=== PATIENT | female | born 1985 | race Caucasian/White ===

== ENCOUNTER → 2018-09-02 07:10 | Outpatient (CLI) | payer OTHER, MEDICAID, SELFPAY ==
--- NOTE | 2018-09-02 07:18 | DI.CT.S_ITS ---
PROCEDURE: CT HEAD/BRAIN WO/W CON INDICATIONS: Headache TECHNIQUE: Precontrast 4.5 mm thick sections acquired from the foramen magnum to the vertex. After the administration of intravenous contrast, 5 mm thick sections acquired through the brain again, followed by 1 mm thick coronal and sagittal reformats through the pituitary fossa. COMPARISON: None. FINDINGS: Image quality: Excellent. Sella: Normal. CSF spaces: Ventricles are symmetric in size and shape. Basal cisterns are patent. No extra-axial fluid collections. Brain: No midline shift. No intracranial bleeds or masses. Schuler-white matter interface appears intact throughout. Skull and face: Calvarium and facial bones appears intact, without suspicious lesions. Orbits appear normal. Sinuses: Sinuses and mastoids appear clear except for mild maxillary sinus mucosal thickening and a small mucous retention cyst at the lateral aspect of the right maxillary sinus.. IMPRESSION: No infection or neoplasm suspected. Mild sinusitis. No vascular abnormality found on the contrast-enhanced portion of the study. Dictated by: Candelario Johns M.D. on 09/02/2018 at 8:29 Approved by: Candelario Johns M.D. on 09/02/2018 at 8:31
== END ==
PROVIDERS: PCP Family Medicine; Visit Provider Physician Assistant
DX: R51 Headache (principal); J32.0 Chronic maxillary sinusitis
CPT/HCPCS: 70470; Q9967

== ENCOUNTER → 2018-10-01 18:51 | Outpatient (CLI) | payer OTHER, SELFPAY ==
[2018-10-01 19:03] LABS: Add Manual Diff / Slide Review NO; Basophils Absolute Auto 100 /uL (0-100); Basophils Percent Auto 1.4 % (0-2); Eosinophils Absolute Auto 700 /uL (0-450); Eosinophils Percent Auto 9.2 % (2-4); Hemoglobin 14.7 g/dL (12.0-16.0); Lymphocytes Absolute Auto 2000 /uL (1100-4500); Lymphocytes Percent Auto 27.8 % (25-40); Mean Corpuscular HGB Conc 33.4 % (30-36); Mean Corpuscular Hemoglobin 28.8 PG (26-34); Mean Corpuscular Volume 86.2 fL (80-100); Monocytes Absolute Auto 800 /uL (0-900); Monocytes Percent Auto 10.7 % (3-14); Neutrophils Absolute Auto 3700 /uL (1500-7000); Neutrophils Percent Auto 50.9 % (50-75); Platelet Count 168 X10^3/uL (150-400); Red Blood Cell Count 5.11 X10^6/uL (4.0-5.2); Red Cell Distribution Width 14.5 % (11.6-14.8); White Blood Cell Count 7.3 X10^3/uL (4.5-11.0)
[2018-10-01 19:42] LABS: D Dimer < 200 ng/mL (<230)
== END ==
PROVIDERS: PCP Family Medicine; Visit Provider Physician Assistant
DX: R06.02 Shortness of breath (principal)
CPT/HCPCS: 85025; 85379

== ENCOUNTER → 2018-10-01 18:59 | Outpatient (CLI) | payer BC, SELFPAY ==
--- NOTE | 2018-10-01 19:04 | DI.RAD.S_ITS ---
PROCEDURE: XR CHEST 2V INDICATIONS: shortness of breath TECHNIQUE: 2 views of the chest were acquired. COMPARISON: None. FINDINGS: Surgical changes and devices: None. Lungs and pleura: Lungs are clear. No pleural effusions or pneumothorax. Mediastinum: Mediastinal contours are normal. Heart size is normal. Bones and chest wall: No suspicious bony abnormalities. Soft tissues appear unremarkable. IMPRESSION: No acute cardiopulmonary pathology. Dictated by: Ajay Murcia M.D. on 10/01/2018 at 19:34 Approved by: Ajay Murcia M.D. on 10/01/2018 at 19:34
== END ==
PROVIDERS: PCP Family Medicine; Visit Provider Physician Assistant
DX: R06.02 Shortness of breath (principal)
CPT/HCPCS: 71046

== ENCOUNTER → 2020-05-25 10:21 | Outpatient (CLI) | payer BC, OTHER, MEDICAID, SELFPAY ==
[2020-05-26 14:29] LABS: COVID19 Sendout Not Detected (Not Detect)
== END ==
PROVIDERS: PCP Family Medicine; Referring Provider Physician Assistant; Visit Provider Physician Assistant
DX: Z03.818 Encounter for observation for suspected exposure to other biological agents ruled out (principal)
CPT/HCPCS: 87635

== ENCOUNTER 2020-09-13 02:22 | Emergency (ER) | payer OTHER, MEDICAID, SELFPAY ==
[2020-09-13 02:25] VITALS: BP 133/73; PULSE 83; RESP 18; TEMP 36.8; O2SAT 97; BMI 21.6
--- NOTE | 2020-09-13 02:33 | ED.GENADULT ---
HPI - General Adult General Chief complaint: Extremity Problem,Nontraumatic Stated complaint: taking prednisone, knee pain feels like hit w/bat Time Seen by Provider: 09/13/20 02:33 History of Present Illness HPI narrative: 35-year-old woman with a history of asthma and nasal polyps currently on a extended prednisone taper due to recent asthma is experiencing severe bilateral knee pain. She has no fevers, chills, rashes. She does not describe any recent trauma to the knees. Over the course of the evening they both gotten increasingly painful to the point she is having trouble walking and describes the pain as being ?hit with a bat or in a car accident but deep inside?. She does not describe arthralgias in any other joints. No recent weight loss or abdominal pain. She notes an episode approximately a week ago where she had 15 minutes of dramatic weakness almost unable to get off the bed associated with tightness across the upper portion of her chest that all resolved spontaneously. She notes that with the recent prednisone taper her asthma is improving and her chronic headaches have also not been bothering her recently. Last week she describes significant constipation followed by a couple days of diarrhea and her bowels have returned to normal this week. She describes no dysuria, vaginal discharge or pelvic discomfort. She states she has never had similar pain. She does not complain of particularly dry skin, difficulty swallowing dry mouth or dry eyes. Related Data Home Medications Medication Instructions Recorded Confirmed multivitamin [Multiple Vitamins] #0 10/09/17 09/15/18 albuterol sulfate 90 mcg/actuation 2 inhalation INHALATION Q4-6H PRN 10/01/18 10/01/18 breath activated powder inhaler fluticasone propionate 50 2 spray NASAL DAILY 10/01/18 10/01/18 mcg/actuation nasal spray,suspension Previous Rx's Medication Instructions Recorded prednisone 20 mg tablet 40 mg PO DAILY #13 tab 09/15/18 oxycodone-acetaminophen 1 tab PO Q6H 7 Days #14 tab 09/13/20 Allergies Allergy/AdvReac Type Severity Reaction Status Date / Time aspirin [ASPIRIN] Allergy Severe Difficulty Verified 09/13/20 02:39 Breathing loratadine [LORATADINE] Allergy Intermediate Hives Verified 09/13/20 02:39 Review of Systems Review of Systems ROS Unobtainable: All systems reviewed & are unremarkable except as noted in HPI and below Patient History Medical History (Updated 09/13/20 @ 03:40 by Kelly Smith MD) Asthma Social History Smoking Status: Never smoker Smoking Status: Never smoker Exam Narrative Exam Narrative: General: Healthy appearing, in mild distress. Able to give a complete and coherent history. Well-nourished well-developed HEENT: Moist mucous membranes, normal sclera with reactive pupils, Neck: No JVD, supple, no tenderness throughout range of motion Respiratory: Lungs are clear to auscultation, no wheezing no rales no rhonchi. Full and symmetrical air movement Chest: Mild tenderness to costochondral joints along sternum bilaterally Cardiac: Regular rate and rhythm no murmurs no bruits Abdomen: Soft, nontender, good bowel tones, no flank pain Skin: Warm and dry, no rashes Neurologic: Grossly neurologically intact with no obvious asymmetries or abnormalities Extremities: No trauma, well perfused. Full nontender range of motion at wrists elbows shoulders hips and ankles. Both knees with significant pain. She can extend both to 180? and flex to approximately 90. There is no obvious effusions no ligamentous tenderness or joint instability in either knee. Neither are warm to the touch or erythematous. She has no obvious synovitis in her hands. Psych: Cooperative, appropriate insight and affect Initial Vital Signs Initial Vital Signs: Vital Signs Temperature 98.3 F 09/13/20 02:25 Pulse Rate 83 09/13/20 02:25 Respiratory Rate 18 09/13/20 02:25 Blood Pressure 133/73 09/13/20 02:25 Pulse Oximetry 97 09/13/20 02:25 Course Orders Ordered: ED Orders 09/13/20 02:51 C-Reactive Protein Quant Stat Complete Blood Count AUTO DIFF Stat Comprehensive Metabolic Panel Stat Erythrocyte Sedimentation Rate Stat Rheumatoid Factor Stat Discontinued Medications Ketorolac Tromethamine (Ketorolac 60 Mg/2 Ml Vial) 15 mg IV NOW ONE Stop: 09/13/20 02:48 Last Admin: 09/13/20 02:54 Dose: 15 mg Documented by: Oxycodone/Acetaminophen (Oxycodone/Apap 5/325 Prepack) 1 bottle MISC SEEINSTR ONE Stop: 09/13/20 03:38 Vital Signs Vital signs: Vital Signs - 8 hr 09/13/20 02:25 Temperature 98.3 F Pulse Rate 83 Respiratory Rate 18 Blood Pressure 133/73 Pulse Oximetry 97 Medical Decision Making Medical Records Medical records reviewed: Yes I reviewed the patient's medical records. Lab Data Lab results reviewed: Yes I reviewed the patient's lab results. Lab results narrative: Leukocytosis is secondary to concurrent prednisone use Result diagrams: 09/13/20 02:51 09/13/20 02:51 Labs: Lab Results 09/13/20 09/13/20 Range/Units 02:51 02:51 WBC 14.5 H (4.5-11.0) X10^3/uL RBC 4.86 (4.0-5.2) X10^6/uL Hgb 13.5 (12.0-16.0) g/dL Hct 41.7 (36-46) % MCV 85.8 (80-100) fL MCH 27.7 (26-34) PG MCHC 32.3 (30-36) % RDW 14.8 (11.6-14.8) % Plt Count 210 (150-400) X10^3/uL Neut % (Auto) 72.2 (50-75) % Lymph % (Auto) 16.5 L (25-40) % [place] % (Auto) 9.8 (3-14) % Eos % (Auto) 1.3 L (2-4) % Baso % (Auto) 0.2 (0-2) % Neut # (Auto) 44949 H (7579-1441) /uL Lymph # (Auto) 2400 (8271-0131) /uL [place] # (Auto) 1400 H (0-900) /uL Eos # (Auto) 200 (0-450) /uL Baso # (Auto) 0 (0-100) /uL ESR 1 (0-20) MM/HR Sodium 135 L (137-145) mmol/L Potassium 3.8 (3.4-5.1) mmol/L Chloride 106 (98-107) mmol/L Carbon Dioxide 25 (22-32) mmol/L BUN 22 H (7-17) mg/dL Creatinine 0.72 (0.52-1.04) mg/dL Estimated GFR > 60.0 (>60) mL/min BUN/Creatinine Ratio 30.6 H (6-22) Glucose 93 (70-100) mg/dL Calcium 8.5 (8.4-10.2) mg/dL Total Bilirubin 0.1 L (0.2-1.3) mg/dL AST 18 (14-36) IU/L ALT 29 (<35) IU/L Alkaline Phosphatase 52 (38-126) U/L C-Reactive Protein < 0.5 (<1.0) mg/dL Total Protein 6.3 (6.3-8.2) g/dL Albumin 3.7 (3.5-5.0) g/dL Globulin 2.6 (1.7-4.1) g/dL Albumin/Globulin Ratio 1.4 (1.0-2.8) Rheumatoid Factor < 8.6 (<12.0) IU/mL MDM Narrative Medical decision making narrative: 35-year-old woman presenting with bilateral knee pain of uncertain etiology with no inciting events. She does have a strong family history of arthritis but is not sure what types of arthritis. She is on a prednisone taper and currently down to 10 mg a day. This does not look like an infectious arthritis or septic joint. She does not describe recent infections to be presenting with a postinfectious arthritis. At 35 otherwise healthy and both knees involved gout or crystal induced arthritis would be less likely. Certainly an inflammatory arthritis or systemic rheumatic illness with arthropathy remain high in the differential. The coincidental steroid taper is an interesting detail. She may have been treating symptoms with the steroids and now on mask as she is getting to a lower dose. Blood work including BMP, CMP sed rate and rheumatoid factor are ordered. Try Toradol for pain control. She declines any narcotics at this point. In the absence of trauma and no obvious bony injury x-rays are not ordered today. Labs return unremarkable. Findings are reviewed with patient. At this point I think that it is safe to go home and see what happens over the next couple of days. With any signs of infection she certainly needs to return. I have suggested that she continue the prednisone taper as Originally ordered and schedule a follow-up appointment with her primary care physician for approximately 1 week after the end of the taper to see if she still having this inflammatory type arthropathy. She is safe for home discharge Discharge Plan Departure Patient Disposition: Home Clinical Impression: Arthropathy Instructions: DI for Knee Pain Activity Restrictions/Additional Instructions: Thank you for coming in [facility] I do not have a full explanation for the arthropathy that you are experiencing in both knees. The workup done tonight does show that there is no significant infection or inflammation currently found. I am going to suggest that you complete your prednisone taper as originally prescribed. You can use half to 1 Percocet to help with pain control. You do need to follow-up with your primary care physician about a week after the end of the prednisone. We will need to wait and see what your body tells us needs to happen next regarding the acute knee pain. If you develop any signs of infection such as fever, redness, swelling please return to the ER for further evaluation Prescriptions: New oxycodone-acetaminophen 5-325 mg tablet 1 tab PO Q6H 7 Days Qty: 14 RF: 0 No Action prednisone 20 mg tablet 40 mg PO DAILY Qty: 13 RF: 0 albuterol sulfate 90 mcg/actuation aerosol powdr breath activated 2 inhalation INHALATION Q4-6H PRNRF: 0 fluticasone propionate 50 mcg/actuation spray,suspension 2 spray NASAL DAILY RF: 0 multivitamin [Multiple Vitamins] 1 EACH tablet Qty: 0 RF: 0 Referrals: Dillan Saucedo MD [Primary Care Provider] -
[2020-09-13] MEDS: KETOROLAC 60 MG/2 ML VIAL 15 MG IV (02:54)
[2020-09-13 03:04] LABS: Add Manual Diff / Slide Review NO; Basophils Absolute Auto 0 /uL (0-100); Basophils Percent Auto 0.2 % (0-2); Eosinophils Absolute Auto 200 /uL (0-450); Eosinophils Percent Auto 1.3 % (2-4); Hematocrit 41.7 % (36-46); Hemoglobin 13.5 g/dL (12.0-16.0); Lymphocytes Absolute Auto 2400 /uL (1100-4500); Lymphocytes Percent Auto 16.5 % (25-40); Mean Corpuscular HGB Conc 32.3 % (30-36); Mean Corpuscular Hemoglobin 27.7 PG (26-34); Mean Corpuscular Volume 85.8 fL (80-100); Monocytes Absolute Auto 1400 /uL (0-900); Monocytes Percent Auto 9.8 % (3-14); Neutrophils Absolute Auto 10500 /uL (1500-7000); Neutrophils Percent Auto 72.2 % (50-75); Platelet Count 210 X10^3/uL (150-400); Red Blood Cell Count 4.86 X10^6/uL (4.0-5.2); Red Cell Distribution Width 14.8 % (11.6-14.8); White Blood Cell Count 14.5 X10^3/uL (4.5-11.0)
[2020-09-13 03:14] LABS: Alanine Aminotransferase 29 IU/L (<35); Albumin 3.7 g/dL (3.5-5.0); Albumin Globulin Ratio 1.4 (1.0-2.8); Alkaline Phosphatase 52 U/L (38-126); Aspartate Aminotransferase 18 IU/L (14-36); BUN Creatinine Ratio 30.6 (6-22); Bilirubin Total 0.1 mg/dL (0.2-1.3); Blood Urea Nitrogen 22 mg/dL (7-17); Calcium 8.5 mg/dL (8.4-10.2); Carbon Dioxide 25 mmol/L (22-32); Chloride 106 mmol/L (98-107); Estimated Glomerular Filt Rate > 60.0 mL/min (>60); Globulin 2.6 g/dL (1.7-4.1); Glucose 93 mg/dL (70-100); HEMOLYSIS 15 (0-50); Potassium 3.8 mmol/L (3.4-5.1); Sodium 135 mmol/L (137-145); Total Protein 6.3 g/dL (6.3-8.2)
[2020-09-13 03:17] LABS: C-Reactive Protein Quant < 0.5 mg/dL (<1.0); Rheumatoid Factor < 8.6 IU/mL (<12.0)
[2020-09-13 03:26] LABS: Erythrocyte Sedimentation Rate 1 MM/HR (0-20)
[2020-09-13] MEDS: OXYCODONE/APAP 5/325 PREPACK 1 BOTTLE MISC (03:47)
[2020-09-13 03:52] VITALS: BP 119/75; PULSE 70; RESP 18; O2SAT 97
== END 2020-09-13 03:53 | disposition home or self-care (01) ==
PROVIDERS: Emergency Provider Emergency Medicine; PCP Family Medicine
DX: M25.562 Pain in left knee (principal); M25.561 Pain in right knee; J45.909 Unspecified asthma, uncomplicated
CPT/HCPCS: 36415; 80053; 85025; 85651; 86140; 86430; 96374; 99283; 99284; J1885

== ENCOUNTER → 2021-08-23 14:43 | Outpatient (CLI) | payer OTHER, MEDICAID, SELFPAY ==
[2021-08-23 15:13] LABS: COVID19 -Nasal RAPID Negative (Negative)
== END ==
PROVIDERS: PCP Family Medicine; Referring Provider Nurse Practitioner Family; Visit Provider Nurse Practitioner Family
DX: Z20.822 Contact with and (suspected) exposure to COVID-19 (principal)
CPT/HCPCS: 87635

== ENCOUNTER → 2021-08-23 15:26 | Outpatient (CLI) | payer OTHER, MEDICAID, SELFPAY ==
--- NOTE | 2021-08-23 15:30 | DI.RAD.S_ITS ---
PROCEDURE: XR CHEST 2V INDICATIONS: shortness of breath TECHNIQUE: 2 views of the chest were acquired. COMPARISON: [facility], CR, XR CHEST 2V, 10/01/2018, 19:15. FINDINGS: Surgical changes and devices: None. Lungs and pleura: No consolidation, pleural effusions or pneumothorax. Mediastinum: Mediastinal contours are normal. Heart size is normal. Bones and chest wall: No suspicious bony abnormalities. Soft tissues appear unremarkable. IMPRESSION: No acute cardiopulmonary abnormality. Dictated by: Dawson Ye M.D. on 08/23/2021 at 15:59 Approved by: Dawson Ye M.D. on 08/23/2021 at 16:00
== END ==
PROVIDERS: PCP Family Medicine; Referring Provider Nurse Practitioner Family; Visit Provider Nurse Practitioner Family
DX: J45.909 Unspecified asthma, uncomplicated (principal); Z20.822 Contact with and (suspected) exposure to COVID-19
CPT/HCPCS: 71046; 87635

== ENCOUNTER 2021-09-19 06:48 | Emergency (ER) | payer OTHER, MEDICAID, SELFPAY ==
[2021-09-19] VITALS (7 sets, daily range): BP systolic 105–129; BP diastolic 66–78; PULSE 68–93; RESP 17–24; TEMP 36.2; O2SAT 97–100; BMI 21.6
--- NOTE | 2021-09-19 07:07 | DI.RAD.S_ITS ---
PROCEDURE: XR CHEST 1V INDICATIONS: Chest pain TECHNIQUE: One view of the chest was acquired. COMPARISON: None. FINDINGS: Surgical changes and devices: None. Lungs and pleura: Lungs are clear. No pleural effusions or pneumothorax. Mediastinum: Mediastinal contours appear normal. Heart size is normal. Bones and chest wall: No suspicious bony lesions. Overlying soft tissues appear unremarkable. IMPRESSION: No acute cardiopulmonary process demonstrated radiographically. Dictated by: Dillan Roman M.D. on 09/19/2021 at 8:09 Approved by: Dillan Roman M.D. on 09/19/2021 at 8:09
--- NOTE | 2021-09-19 07:14 | ED_ITS ---
HPI - Chest Pain General Chief Complaint: Chest Pain Stated Complaint: low back pain/chest pain feels like pressure Time Seen by Provider: 09/19/21 07:04 Source: patient Mode of arrival: Ambulatory Limitations: no limitations History of Present Illness HPI narrative: Patient is a 36-year-old female who is here for evaluation of right-sided chest discomfort and right back discomfort. She had a 1st episode of this yesterday afternoon. It resolved. Noticed some see eating or movement or palpation of breathing. During the middle of night last night she had a recurrence of the symptoms. She states that was worse than what it was during the day. It has since completely resolved. She thinks it lasted approximately 45 minutes. Again not associated with movement palpation or breathing. Has never had sympt oms like this prior to yesterday. No nausea vomiting. No shortness of breath. Did have diarrhea 2 days ago that is resolved. No lower extremity swelling. She is currently asymptomatic Related Data Home Medications Medication Instructions Recorded Confirmed multivitamin (Multiple Vitamins) #0 10/09/17 08/23/21 albuterol sulfate 90 mcg/actuation 2 inhalation INHALATION Q4-6H PRN 10/01/18 08/23/21 breath activated powder inhaler fluticasone propionate 50 2 spray NASAL DAILY 10/01/18 08/23/21 mcg/actuation nasal spray,suspension Previous Rx's Medication Instructions Recorded fluticasone 250 mcg-salmeterol 50 1 inh INHALATION BID #60 ea 08/23/21 mcg/dose blistr powdr for inhalation (Advair Diskus) Allergies Allergy/AdvReac Type Severity Reaction Status Date / Time aspirin [ASPIRIN] Allergy Severe Difficulty Verified 09/19/21 07:01 Breathing loratadine [LORATADINE] Allergy Intermediate Hives Verified 09/19/21 07:01 Review of Systems Constitutional Constitutional: Reports system reviewed and no additional complaints, except as documented Cardiovascular Cardiovascular: Reports system reviewed and no additional complaints, except as documented Respiratory Respiratory: Reports as per HPI and Reports system reviewed and no additional complaints, except as documented Gastrointestinal Gastrointestinal: Reports as per HPI and Reports system reviewed and no additional complaints, except as documented Genitourinary Genitourinary: Reports system reviewed and no additional complaints, except as documented Integumentary/Breasts Skin/Breast: Reports system reviewed and no additional complaints, except as documented Neurologic Neurologic: Reports system reviewed and no additional complaints, except as documented Hematologic/Lymphatic On Anticoagulants: No Patient History Medical History Asthma Social History Smoking Status: Never smoker Smoking Status: Never smoker Substance Use Type: does not use Exam Initial Vital Signs Initial Vital Signs: Vital Signs Temperature 97.1 F L 09/19/21 07:01 Pulse Rate 80 09/19/21 07:01 Respiratory Rate 22 09/19/21 07:01 Blood Pressure 129/78 09/19/21 07:01 Pulse Oximetry 100 09/19/21 07:01 Const General: cooperative and healthy appearing HENMT Head: normal to inspection and normocephalic Resp Effort & Inspection: normal respiratory effort Auscultation: clear to auscultation bilaterally Cardio Rate: regular rate Rhythm: regular rhythm GI Inspection: normal to inspection Palpation: soft Skin General: no rashes or lesions noted Neuro General: patient alert, patient awake, patient oriented x3 and moves all extremities Extrem General: normal to inspection, capillary refill normal and no pedal edema Psych Appearance: grossly normal and well kempt Scores GCS [place] coma scale eye opening: Spontaneous Selvin coma scale verbal response: Orientated Selvin coma scale motor response: Obey commands Selvin coma scale total score: 15 HEART Score Heart Score history: Slightly Suspicious Heart Score EKG: Normal Heart Score Age: < 45 years old Heart Score risk factors: No known risk factors Heart Score troponin: < or = to normal limit Heart Score Total: 0 Course Orders Ordered: ED Orders 09/19/21 07:05 COVID19 -Nasal swab/Pre-Proc Stat 09/19/21 07:07 XR chest 1V Stat EKG-12 Lead Stat 09/19/21 07:08 Complete Blood Count AUTO DIFF Stat Comprehensive Metabolic Panel Stat Lipase Stat Troponin & CK Cardiac Panel Stat Vital Signs Vital signs: Vital Signs - 8 hr 09/19/21 07:01 Temperature 97.1 F L Pulse Rate 80 Respiratory Rate 22 Blood Pressure 129/78 Pulse Oximetry 100 MDM - Chest Pain Lab Data Result diagrams: 09/19/21 07:10 09/19/21 07:10 Labs: Lab Results 09/19/21 09/19/21 09/19/21 Range/Units 07:05 07:10 07:10 WBC 4.6 (4.5-11.0) X10^3/uL RBC 5.06 (4.0-5.2) X10^6/uL Hgb 14.5 (12.0-16.0) g/dL Hct 42.9 (36-46) % MCV 84.8 (80-100) fL MCH 28.7 (26-34) PG MCHC 33.8 (30-36) % RDW 14.8 (11.6-14.8) % Plt Count 157 (150-400) X10^3/uL Neut % (Auto) 72.9 (50-75) % Lymph % (Auto) 11.0 L (25-40) % [place] % (Auto) 10.7 (3-14) % Eos % (Auto) 4.8 H (2-4) % Baso % (Auto) 0.6 (0-2) % Neut # (Auto) 3400 (7951-3164) /uL Lymph # (Auto) 500 L (9915-2612) /uL [place] # (Auto) 500 (0-900) /uL Eos # (Auto) 200 (0-450) /uL Baso # (Auto) 0 (0-100) /uL Sodium 135 L (137-145) mmol/L Potassium 3.5 (3.4-5.1) mmol/L Chloride 107 (98-107) mmol/L Carbon Dioxide 23 (22-32) mmol/L BUN 11 (7-17) mg/dL Creatinine 0.72 (0.52-1.04) mg/dL Estimated GFR > 60.0 (>60) mL/min BUN/Creatinine Ratio 15.3 (6-22) Glucose 101 H (70-100) mg/dL Calcium 8.2 L (8.4-10.2) mg/dL Total Bilirubin 0.5 (0.2-1.3) mg/dL AST 25 (14-36) IU/L ALT 21 (<35) IU/L Alkaline Phosphatase 60 (38-126) U/L Total Creatine Kinase 70 (30-135) U/L CK-MB (CK-2) TNP CK-MB (CK-2) Rel Index TNP Troponin I < 0.012 (0.01-0.034) ng/mL Total Protein 6.6 (6.3-8.2) g/dL Albumin 3.8 (3.5-5.0) g/dL Globulin 2.8 (1.7-4.1) g/dL Albumin/Globulin Ratio 1.4 (1.0-2.8) Lipase 40 (23-300) U/L SARS-CoV-2 (PCR) Negative (Negative) Imaging Data Chest x-ray: Radiologist's Impression: [address] [address] XRay Report Signed Patient: Delphine Cedillo MR#: [id number] : 1985 Acct:[id number] Age/Sex: 36 / F Date of Service: 09/19/21 Loc: ED Accession Number: [id number] ?? Procedure: XR chest 1V Ordering Provider: Reggie Christian D.O. PROCEDURE:? XR CHEST 1V ? INDICATIONS:? Chest pain ? TECHNIQUE:? One view of the chest was acquired.? ? COMPARISON:? None. ? FINDINGS:? ? Surgical changes and devices:? None.? ? Lungs and pleura:? Lungs are clear.? No pleural effusions or pneumothorax.? ? Mediastinum:? Mediastinal contours appear normal.? Heart size is normal.? ? Bones and chest wall:? No suspicious bony lesions.? Overlying soft tissues appear unremarkable.? ? IMPRESSION:? No acute cardiopulmonary process demonstrated radiographically. ? ? Dictated by: Dillan Roman M.D. on 09/19/2021 at 8:09 ? ? Approved by: Dillan Roman M.D. on 09/19/2021 at 8:09? ECG Data Attestation: I personally reviewed and interpreted this ECG as follows: Interpretation: Sinus rhythm Ventricular rate 88 Normal axis Normal QRS Normal QTC No ST T wave changes MDM Narrative Medical decision making narrative: Patient has low risk heart score. Chest x-ray is unremarkable. EKG is unremarkable. Labs unremarkable. Unsure the exact etiology but does not appear to be ACS, PE, pneumonia or other emergent/infectious etiology. I did discuss this with the patient. We discussed follow-up instructions and return precautions. She expressed understanding and agreement. Discharge Plan Departure Patient Disposition: Home Clinical Impression: Atypical chest pain Instructions: DI for Atypical Chest Pain Activity Restrictions/Additional Instructions: Continue to take all of your medications as directed. Contact your primary doctor for a follow-up. Return to the emergency department for any new or worsening symptoms. Prescriptions: No Action albuterol sulfate 90 mcg/actuation aerosol powdr breath activated 2 inhalation INHALATION Q4-6H PRN0RF fluticasone propionate 50 mcg/actuation spray,suspension 2 spray NASAL DAILY 0RF fluticasone propion-salmeterol [Advair Diskus] 250-50 mcg/dose blister with device 1 inh inhalation BID Qty: 60 0RF multivitamin [Multiple Vitamins] 1 EACH tablet Qty: 0 0RF Referrals: Sri Cervantes MD [Primary Care Provider] -
[2021-09-19 07:31] LABS: Add Manual Diff / Slide Review NO; Basophils Absolute Auto 0 /uL (0-100); Basophils Percent Auto 0.6 % (0-2); Eosinophils Absolute Auto 200 /uL (0-450); Eosinophils Percent Auto 4.8 % (2-4); Hematocrit 42.9 % (36-46); Hemoglobin 14.5 g/dL (12.0-16.0); Lymphocytes Absolute Auto 500 /uL (1100-4500); Mean Corpuscular HGB Conc 33.8 % (30-36); Mean Corpuscular Hemoglobin 28.7 PG (26-34); Mean Corpuscular Volume 84.8 fL (80-100); Monocytes Absolute Auto 500 /uL (0-900); Monocytes Percent Auto 10.7 % (3-14); Neutrophils Absolute Auto 3400 /uL (1500-7000); Neutrophils Percent Auto 72.9 % (50-75); Platelet Count 157 X10^3/uL (150-400); Red Blood Cell Count 5.06 X10^6/uL (4.0-5.2); Red Cell Distribution Width 14.8 % (11.6-14.8); White Blood Cell Count 4.6 X10^3/uL (4.5-11.0)
[2021-09-19 07:41] LABS: Alanine Aminotransferase 21 IU/L (<35); Albumin 3.8 g/dL (3.5-5.0); Albumin Globulin Ratio 1.4 (1.0-2.8); Alkaline Phosphatase 60 U/L (38-126); Aspartate Aminotransferase 25 IU/L (14-36); BUN Creatinine Ratio 15.3 (6-22); Bilirubin Total 0.5 mg/dL (0.2-1.3); Blood Urea Nitrogen 11 mg/dL (7-17); Calcium 8.2 mg/dL (8.4-10.2); Carbon Dioxide 23 mmol/L (22-32); Chloride 107 mmol/L (98-107); Creatine Kinase 70 U/L (30-135); Estimated Glomerular Filt Rate > 60.0 mL/min (>60); Globulin 2.8 g/dL (1.7-4.1); Glucose 101 mg/dL (70-100); HEMOLYSIS < 15 (0-50); Lipase 40 U/L (23-300); Potassium 3.5 mmol/L (3.4-5.1); Sodium 135 mmol/L (137-145); Total Protein 6.6 g/dL (6.3-8.2)
[2021-09-19 07:53] LABS: Troponin I < 0.012 ng/mL (0.01-0.034)
[2021-09-19 08:05] LABS: COVID19 -Nasal RAPID Negative (Negative)
== END 2021-09-19 08:53 | disposition home or self-care (01) ==
PROVIDERS: Emergency Provider Emergency Medicine; PCP Family Medicine
DX: R07.89 Other chest pain (principal); Z20.822 Contact with and (suspected) exposure to COVID-19
CPT/HCPCS: 36415; 71045; 80053; 82550; 83690; 84484; 85025; 87635; 93005; 99283; 99284; C9803

== ENCOUNTER → 2021-10-26 12:02 | Outpatient (CLI) | payer OTHER, MEDICAID, SELFPAY ==
[2021-10-26 15:10] LABS: Follicle Stimulating Hormone 5.36 mIU/mL; Luteinizing Hormone 5.11 mIU/mL
[2021-11-03 12:09] LABS: Percent Free Testosterone 2.54 % (0.50-2.80); Testosterone Free 0.49 ng/dL (0.10-0.85); Testosterone Total 19.2 ng/dL (10.0-55.0)
== END ==
PROVIDERS: PCP Family Medicine; Referring Provider Obstetrics & Gynecology; Visit Provider Obstetrics & Gynecology
DX: R68.82 Decreased libido (principal)
CPT/HCPCS: 36415; 83001; 83002; 84270; 84402; 84403

== ENCOUNTER → 2022-01-07 14:03 | Outpatient (CLI) | payer OTHER, MEDICAID, SELFPAY ==
--- NOTE | 2022-01-07 14:06 | DI.RAD.S_ITS ---
PROCEDURE: XR HIP W PEL IF DONE LT 2V INDICATIONS: left hip pain TECHNIQUE: AP pelvis with lateral view(s) of the left hip(s). COMPARISON: None. FINDINGS: Bones: No fractures or dislocations. Pelvic ring appears intact. No suspicious bony lesions. Soft tissues: The visualized bowel gas pattern is normal. No suspicious soft tissue calcifications. IMPRESSION: No left hip fracture or dislocation. No evidence of avascular necrosis. Dictated by: Ajay Murcia M.D. on 01/07/2022 at 14:40 Approved by: Ajay Murcia M.D. on 01/07/2022 at 14:40
== END ==
PROVIDERS: PCP Family Medicine; Referring Provider Physician Assistant; Visit Provider Physician Assistant
DX: M25.552 Pain in left hip (principal)
CPT/HCPCS: 73502

== ENCOUNTER 2022-02-26 13:18 | Emergency (ER) | payer OTHER, MEDICAID, SELFPAY ==
[2022-02-26 13:22] VITALS: BP 159/79; PULSE 103; RESP 20; TEMP 36.6; O2SAT 100
[2022-02-26] MEDS: KETOROLAC 30 MG/ML VIAL IM (13:36)
[2022-02-26] MEDS: ONDANSETRON 4 MG ODT SL (13:37)
[2022-02-26 14:27] LABS: RBC Urine None Seen (0-5/HPF); Squamous Epithelial Cell Urine 1-5 /HPF (0-5/HPF); WBC Urine None Seen (0-5/HPF)
[2022-02-26 14:28] LABS: Bacteria Urine None Seen; Culture Indicated Urine Cult Not Indicated
--- NOTE | 2022-02-26 15:23 | ED.HA ---
HPI - Headache <MIO Gates - Last Filed: 02/26/22 15:33> General Chief Complaint: Headache Stated Complaint: migraine, right side pain, neck/eye pain, nausea Time Seen by Provider: 02/26/22 14:55 Mode of arrival: Ambulatory History of Present Illness HPI Narrative: 36-year-old female presents to the emergency department with complaints a migraine that started earlier this morning. Patient has a history of migraines for which she has a prescription for sumatriptan. She states that this does not usually take care of a migraine, whereas Toradol seems to work best. Patient states that she did not sleep well at all last night and woke up this morning mild pain down her back and arms. Patient is able to ambulate without difficulty but endorses photophobia, phonophobia but no nausea, vomiting, nuchal rigidity. Related Data Home Medications Medication Instructions Recorded Confirmed multivitamin (Multiple Vitamins ##0 10/09/17 02/26/22 tablet) albuterol sulfate 90 mcg/actuation 2 inhalation inhalation Q4-6H PRN 10/01/18 02/26/22 breath activated powder inhaler fluticasone propionate 50 2 spray intranasal DAILY 10/01/18 02/26/22 mcg/actuation nasal spray,suspension montelukast 10 mg tablet 10 mg PO DAILY 10/26/21 02/26/22 (Singulair) Previous Rx's Medication Instructions Recorded fluticasone 250 mcg-salmeterol 50 1 inh inhalation BID #60 ea 08/23/21 mcg/dose blistr powdr for inhalation (Advair Diskus) syringe with needle, safety 3 mL #25 ea 12/19/21 22 gauge x 1 1/2 (BD Eclipse Luer-Vinicius) testosterone cypionate 100 mg/mL 25 mg (0.25 mL) IM Q2W #1 mL 12/19/21 intramuscular oil (Depo-Testosterone) methocarbamol 500 mg tablet 500 mg PO TID PRN muscle spasms 02/26/22 #20 tabs Allergies Allergy/AdvReac Type Severity Reaction Status Date / Time aspirin [ASPIRIN] Allergy Severe Difficulty Verified 02/26/22 12:54 Breathing loratadine [LORATADINE] Allergy Intermediate Hives Verified 02/26/22 12:54 Review of Systems <MIO Gates - Last Filed: 02/26/22 15:33> Review of Systems Narrative: Narrative: GENERAL: Denies chills, fatigue, fever, sweats. See HPI HEENT: Denies sinus pain, ear pain, sore throat, difficulty swallowing, dizziness. RESPIRATORY: Denies dyspnea, cough, wheezing, sputum. CARDIOVASCULAR: Denies chest pain, palpitations, edema. GASTROINTESTINAL: Denies nausea, vomiting, abdominal pain, diarrhea, constipation. : Denies dysuria, frequency, incontinence, hematuria, urinary retention, flank pain. MUSCULOSKELETAL: Denies weakness, joint pain, or bony pain. SKIN: Denies rash, skin lesions, or pruritis. NEUROLOGIC: Denies weakness, dizziness, headache, numbness, confusion. Endorses photophobia, phonophobia. PSYCHIATRIC: No concerning psychosocial issues. Patient History <MIO Gates - Last Filed: 02/26/22 15:33> Medical History Acne (~2013) Allergies (~1984) Asthma (~1986) Benign familial tremor (~1999) Chicken pox (~1989) Painful menstrual periods (~2013) Shoulder pain (~2020) Surgical History Anesthesia History of sinus surgery S/P LASIK surgery (~2019) Family History Father History of heart disease Mother Diabetes mellitus Mental health problem Grandfather Cancer Diabetes mellitus Social History Smoking Status: Never smoker Smoking Status: Never smoker alcohol intake frequency: holidays/special occasions only Substance Use Type: does not use Exam <MIO Gates - Last Filed: 02/26/22 15:33> Narrative Exam Narrative: Exam Narrative: Patient endorses significant improvement of pain after Toradol injection. GENERAL: This is a well-nourished, well-developed patient, in no acute distress HEAD: Atraumatic. Normocephalic. EYES: Pupils equal round and reactive. Extraocular motions intact. No scleral icterus, injection or drainage. ENT: Nose without bleeding, purulent drainage. Throat without erythema, tonsillar hypertrophy or exudate. Airway patent. NECK: Trachea midline. No JVD or lymphadenopathy. Slightly limited range of motion. CARDIOVASCULAR: Regular rate and rhythm without murmurs, peripheral pulses intact, cap refill <2 sec. RESPIRATORY: Breath sounds equal and clear bilaterally. No wheezes, rales, or rhonchi. No cough. No increased respiratory effort. No accessory muscle use. GASTROINTESTINAL: Abdomen soft, non-tender, nondistended without guarding or rebound. No suprapubic pain. EXTREMITIES: Normal range of motion, no clubbing or edema. Neurovascularly intact. NEURO: A&O x 3. SKIN: Warm, dry, no rashes or lesions noted. Initial Vital Signs Initial Vital Signs: Vital Signs Temperature 97.9 F 02/26/22 13:22 Pulse Rate 103 H 02/26/22 13:22 Respiratory Rate 20 02/26/22 13:22 Blood Pressure 159/79 H 02/26/22 13:22 Pulse Oximetry 100 02/26/22 13:22 Oxygen Delivery Method 02/26/22 13:22 Reviewed Back/Spine/Pelvis Other: BACK feed mill tender but free of any obvious external abnormalities. There is no asymmetry, swelling, bruising or wound. There is no paraspinal tenderness or CVA tenderness. SI joints nontender. No pain over spinous processes. Tenderness over bilateral trapezius. No symptoms of cauda equina such as saddle anesthesia. Sensation is grossly intact. ROM is full and without pain. Resistive strengths are within normal limits Gait is normal. Heel toe balance is intact. <Perri Sequeira DO - Last Filed: 02/27/22 08:55> Initial Vital Signs Initial Vital Signs: Vital Signs Temperature 97.9 F 02/26/22 13:22 Pulse Rate 103 H 02/26/22 13:22 Respiratory Rate 20 02/26/22 13:22 Blood Pressure 159/79 H 02/26/22 13:22 Pulse Oximetry 100 02/26/22 13:22 Oxygen Delivery Method 02/26/22 13:22 Course <MIO Gates - Last Filed: 02/26/22 15:33> Orders Ordered: Discontinued Medications Ketorolac Tromethamine (Ketorolac 30 Mg/Ml Vial) 30 mg IM NOW ONE Stop: 02/26/22 13:31 Last Admin: 02/26/22 13:36 Dose: 30 mg Documented By: ADK Ondansetron HCl (Ondansetron 4 Mg Odt) 4 mg SL NOW ONE Stop: 02/26/22 13:31 Last Admin: 02/26/22 13:37 Dose: 4 mg Documented By: ADK Vital Signs Vital signs: Vital Signs - 8 hr 02/26/22 13:22 Temperature 97.9 F Pulse Rate 103 H Respiratory Rate 20 Blood Pressure 159/79 H Pulse Oximetry 100 Oxygen Delivery Method Room Air <Perri Sequeira DO - Last Filed: 02/27/22 08:55> Orders Ordered: Discontinued Medications Ketorolac Tromethamine (Ketorolac 30 Mg/Ml Vial) 30 mg IM NOW ONE Stop: 02/26/22 13:31 Last Admin: 02/26/22 13:36 Dose: 30 mg Documented By: OSMELK Ondansetron HCl (Ondansetron 4 Mg Odt) 4 mg SL NOW ONE Stop: 02/26/22 13:31 Last Admin: 02/26/22 13:37 Dose: 4 mg Documented By: OSMELK Vital Signs Vital signs: Vital Signs - 8 hr 02/26/22 13:22 Temperature 97.9 F Pulse Rate 103 H Respiratory Rate 20 Blood Pressure 159/79 H Pulse Oximetry 100 Oxygen Delivery Method Room Air MDM - Headache <MIO Gates - Last Filed: 02/26/22 15:33> Differential Diagnosis Differential diagnosis: Likely migraine Lab Data Labs: Lab Results 02/26/22 Range/Units 13:58 Urine RBC None seen (0-5/HPF) Urine WBC None seen (0-5/HPF) Ur Squamous Epith Cells 1-5 /hpf (0-5/HPF) Urine Bacteria None seen (None) Ur Culture Indicated? Cult not indicated Point of Care Testing Test Results Negative Urine Dip Bedside Urine Glucose Negative Bedside Urine Bilirubin - Negative Bedside Urine Ketone - Negative Urine Specific [place] 1.005 Bedside Urine Occult Blood - Negative Bedside Urine pH 7.0 Bedside Urine Protein - Negative Bedside Urine Urobilinogen - Negative Bedside Urine Nitrite - Negative Bedside Urine Leukocytes + 70 Esterase MDM Narrative Medical decision making narrative: 36-year-old female that presents to emergency department with migraine like symptoms. Assessment was unremarkable. Pain primarily resolved with Toradol and Zofran. Patient with mild body soreness and tightness around her neck and shoulders. Prescription for Robaxin provided. Discussed return precautions and plan of care with patient and , who were agreeable with course of action. <Perri Sequeira, DO - Last Filed: 02/27/22 08:55> Lab Data Labs: Lab Results 02/26/22 Range/Units 13:58 Urine RBC None seen (0-5/HPF) Urine WBC None seen (0-5/HPF) Ur Squamous Epith Cells 1-5 /hpf (0-5/HPF) Urine Bacteria None seen (None) Ur Culture Indicated? Cult not indicated Point of Care Testing Test Results Negative Urine Dip Bedside Urine Glucose Negative Bedside Urine Bilirubin - Negative Bedside Urine Ketone - Negative Urine Specific [place] 1.005 Bedside Urine Occult Blood - Negative Bedside Urine pH 7.0 Bedside Urine Protein - Negative Bedside Urine Urobilinogen - Negative Bedside Urine Nitrite - Negative Bedside Urine Leukocytes + 70 Esterase Discharge Plan Departure Patient Disposition: Home Clinical Impression: Migraine Instructions: DI for Migraine Activity Restrictions/Additional Instructions: *You have been diagnosed with a migraine. I am happy that the Toradol injection has worked for your pain. I will prescribe a muscle relaxer that may help with your muscle soreness. Please follow-up with your family doctor or return to the emergency department if you start having debilitating pain, vision changes, difficulty breathing, etc.. *What to do: *Please continue to take your regular medications as directed. [ ] New medication prescriptions sent to your pharmacy: [ ] [x ] New medication written as a paper prescription [ ] No new medications given *Please follow up with your primary care provider in 2-3 days, call for an appointment. Let them know you were seen in the Emergency Department and that we ask that you be seen in follow up. We will electronically transmit a record of today's note if your PCP is in our system *If you do not have a primary care provider please contact the [facility] Resource line at [phone]. They will ask some questions about your medical history and help get you set up with a doctor in the community. ? Return to ER if you should have any new, worsening or concerning symptoms, such as worsening pain, severe headache, confusion, chest pain, difficulty breathing, fever greater than 101 F, shaking chills, persistent vomiting to the point that you cannot drink fluids, or other new or worsening symptoms. Prescriptions: New methocarbamol 500 mg tablet 500 mg PO TID PRN (Reason: muscle spasms) Qty: 20 0RF No Action albuterol sulfate 90 mcg/actuation aerosol powdr breath activated 2 inhalation INHALATION Q4-6H PRN fluticasone propionate 50 mcg/actuation spray,suspension 2 spray NASAL DAILY fluticasone propion-salmeterol [Advair Diskus] 250-50 mcg/dose blister with device 1 inh inhalation BID Qty: 60 0RF multivitamin [Multiple Vitamins] 1 EACH tablet Qty: 0 (DME) BD Eclipse Luer-Vinicius 3 mL 22 gauge x 1 1/2 syringe See Rx Instructions .Route Qty: 25 1RF Rx Instructions: As directed testosterone cypionate [Depo-Testosterone] 100 mg/mL oil 25 mg IM Q2W Qty: 1 5RF montelukast [Singulair] 10 mg tablet 10 mg PO DAILY Referrals: Sri Cervantes MD [Primary Care Provider] - Visit Report Forms: Patient Portal/API <Perri Sequeira DO - Last Filed: 02/27/22 08:55> Cosign ED Attending Breann Attestation: I was immediately available in the department for consultation. Documentation has been reviewed. I agree with assessment and plan.
== END 2022-02-26 15:23 | disposition home or self-care (01) ==
PROVIDERS: Emergency Medicine; Emergency Provider Registered Nurse; PCP Family Medicine
DX: G43.909 Migraine, unspecified, not intractable, without status migrainosus (principal)
CPT/HCPCS: 81003; 81015; 81025; 96372; 99283; J1885

== ENCOUNTER 2022-05-23 11:51 | Emergency (ER) | payer BC, OTHER, MEDICAID, SELFPAY ==
[2022-05-23] VITALS (11 sets, daily range): BP systolic 105–144; BP diastolic 61–82; PULSE 59–80; RESP 14–18; TEMP 35.8; O2SAT 96–100; BMI 22.7
[2022-05-23 13:49] LABS: Add Manual Diff / Slide Review NO; Basophils Absolute Auto 0 /uL (0-100); Basophils Percent Auto 0.6 % (0-2); Eosinophils Absolute Auto 300 /uL (0-450); Eosinophils Percent Auto 4.6 % (2-4); Hemoglobin 14.5 g/dL (12.0-16.0); Lymphocytes Absolute Auto 1200 /uL (1100-4500); Lymphocytes Percent Auto 17.7 % (25-40); Mean Corpuscular HGB Conc 33.7 % (30-36); Mean Corpuscular Hemoglobin 29.6 PG (26-34); Mean Corpuscular Volume 87.9 fL (80-100); Monocytes Absolute Auto 600 /uL (0-900); Monocytes Percent Auto 7.8 % (3-14); Neutrophils Absolute Auto 4900 /uL (1500-7000); Neutrophils Percent Auto 69.3 % (50-75); Platelet Count 208 X10^3/uL (150-400); Red Blood Cell Count 4.89 X10^6/uL (4.0-5.2); Red Cell Distribution Width 13.6 % (11.6-14.8)
[2022-05-23 13:59] LABS: Alanine Aminotransferase 19 IU/L (<35); Albumin 4.5 g/dL (3.5-5.0); Albumin Globulin Ratio 1.3 (1.0-2.8); Alkaline Phosphatase 62 U/L (38-126); Aspartate Aminotransferase 24 IU/L (14-36); BUN Creatinine Ratio 13.2 (6-22); Bilirubin Total 0.4 mg/dL (0.2-1.3); Blood Urea Nitrogen 10 mg/dL (7-17); Calcium 9.1 mg/dL (8.4-10.2); Carbon Dioxide 27 mmol/L (22-32); Chloride 102 mmol/L (98-107); Estimated Glomerular Filt Rate > 60 mL/min (>60); Globulin 3.4 g/dL (1.7-4.1); Glucose 91 mg/dL (70-100); HEMOLYSIS < 15 (0-50); Potassium 3.6 mmol/L (3.4-5.1); Sodium 140 mmol/L (137-145); Total Protein 7.9 g/dL (6.3-8.2)
--- NOTE | 2022-05-23 14:15 | ED_ITS ---
HPI - Headache General Chief Complaint: Headache Stated Complaint: Migraine for 5 days, Medication not helping Time Seen by Provider: 05/23/22 13:34 Mode of arrival: Ambulatory History of Present Illness HPI Narrative: This is a 36-year-old female with history of migraines who presents to the emergency department complaining of intractable migraine with nausea, vomiting, sensitivity to light, and sound, endorses dental pain with sensation of ?rattling brain intermittently over the last 5 days. She has tried all of her typical medicines at home including Tylenol, sumatriptan 100 mg earlier today, ketorolac, and states that she had an injection of ketorolac 2 days ago and states that typically it will resolve her migraine and it did not. She woke up with a migraine in his had ongoing intractable migraine symptoms since Saturday. She endorses vision changes being tunnel vision, she denies blurred vision, double vision or black. She endorses tenderness to her occipital region of her scalp on the right, complains of some neck muscle tight Ms. Sensation but denies muscle spasm or meningeal pain. She endorses vomiting with nausea a few times, denies any dysuria, diarrhea, chance of or other symptom. Related Data Home Medications Medication Instructions Recorded Confirmed multivitamin (Multiple Vitamins ##0 10/09/17 02/26/22 tablet) albuterol sulfate 90 mcg/actuation 2 inhalation inhalation Q4-6H PRN 10/01/18 02/26/22 breath activated powder inhaler fluticasone propionate 50 2 spray intranasal DAILY 10/01/18 02/26/22 mcg/actuation nasal spray,suspension montelukast 10 mg tablet 10 mg PO DAILY 10/26/21 02/26/22 (Singulair) Previous Rx's Medication Instructions Recorded fluticasone 250 mcg-salmeterol 50 1 inh inhalation BID #60 ea 08/23/21 mcg/dose blistr powdr for inhalation (Advair Diskus) syringe with needle, safety 3 mL #25 ea 12/19/21 22 gauge x 1 1/2 (BD Eclipse Luer-Vinicius) methocarbamol 500 mg tablet 500 mg PO TID PRN muscle spasms 02/26/22 #20 tabs testosterone cypionate 100 mg/mL 25 mg (0.25 mL) IM Q2W #1 mL 05/22/22 intramuscular oil ketorolac 10 mg tablet 10 mg PO Q6H PRN pain #30 tabs 05/23/22 metoclopramide HCl 10 mg tablet 10 mg PO Q6H PRN nausea and 05/23/22 (Reglan) vomiting #14 tabs sumatriptan succinate 6 mg/0.5 mL 6 mg (0.5 mL) SUBCUT Q1-4H PRN 05/23/22 subcutaneous pen injector migraine headache #1 mL Allergies Allergy/AdvReac Type Severity Reaction Status Date / Time aspirin [ASPIRIN] Allergy Severe Difficulty Verified 05/23/22 11:59 Breathing loratadine [LORATADINE] Allergy Intermediate Hives Verified 05/23/22 11:59 Review of Systems Review of Systems Narrative: Review of systems is negative for acute abnormalities unless otherwise noted in HPI Patient History Medical History Acne (~2013) Allergies (~1984) Asthma (~1986) Benign familial tremor (~1999) Chicken pox (~1989) Painful menstrual periods (~2013) Shoulder pain (~2020) Surgical History Anesthesia History of sinus surgery S/P LASIK surgery (~2019) Family History Father History of heart disease Mother Diabetes mellitus Mental health problem Grandfather Cancer Diabetes mellitus Social History Smoking Status: Never smoker Smoking Status: Never smoker alcohol intake frequency: holidays/special occasions only Substance Use Type: does not use Exam Narrative Exam Narrative: Reviewed vitals signs and nursing notes. General: cooperative, comfortable, in no acute distress, well groomed HEENT: symmetrical facial expressions, moist mucous membranes, EOMI, perrla without any meningeal symptoms Cardiovascular: regular rate and rhythm, no peripheral edema, warm extremities Respiratory: normal effort, able to speak in complete sentences, without wheezing, stridor, or abnormal breath sounds. No retractions or tachypnea. GI: abdomen soft, nontender to palpation, nondistended, without masses, rebound tenderness or exquisite tenderness with exam. MSK: moves all extremities, neurovascularly intact, no weakness, normal tone Skin: brisk capillary refill, without pallor or erythema Neuro: normal speech and cognition, A&O x3, ambulatory, clear speech WITHOUT ANY FOCAL NEURO DEFICITS Psych: mental status is grossly normal, congruent mood, normal affect, pleasant and cooperative Initial Vital Signs Initial Vital Signs: Vital Signs Temperature 96.4 F L 05/23/22 11:59 Pulse Rate 68 05/23/22 11:59 Respiratory Rate 14 05/23/22 11:59 Blood Pressure 137/82 05/23/22 11:59 Pulse Oximetry 100 05/23/22 11:59 Oxygen Delivery Method 05/23/22 11:59 Course Orders Ordered: ED Orders 05/23/22 13:40 CBC Auto Diff [Complete Blood Count AUTO DIFF] Stat CMP [Comprehensive Metabolic Panel] Stat 05/23/22 14:20 Urine Microscopic Stat Discontinued Medications Acetaminophen (Acetaminophen 325 Mg Tablet) 975 mg PO NOW ONE Stop: 05/23/22 14:16 Last Admin: 05/23/22 14:30 Dose: 975 mg Documented By: RADHA Dexamethasone (Dexamethasone 10 Mg/Ml Vial) 10 mg IV NOW ONE Stop: 05/23/22 14:16 Last Admin: 05/23/22 14:31 Dose: 10 mg Documented By: RADHA Dihydroergotamine Mesylate (Dihydroergotamine 1 Mg/Ml Ampul) 1 mg IV NOW ONE Stop: 05/23/22 16:13 Last Admin: 05/23/22 16:29 Dose: Not Given Documented By: RADHA(2) Diphenhydramine HCl (Diphenhydramine 50 Mg/Ml Vial) 25 mg IV NOW ONE Stop: 05/23/22 14:16 Last Admin: 05/23/22 14:31 Dose: 25 mg Documented By: RADHA Sodium Chloride (Normal Saline 0.9%) 1,000 mls @ 1,000 mls/hr IV BOLUS ONE Stop: 05/23/22 15:14 Last Infusion: 05/23/22 15:57 Dose: 0 mls/hr Documented By: Admin: 05/23/22 14:58 Dose: 1,000 mls/hr Documented By: RADHA Ketorolac Tromethamine (Ketorolac 30 Mg/Ml Vial) 15 mg IV NOW ONE Stop: 05/23/22 14:16 Last Admin: 05/23/22 14:31 Dose: 15 mg Documented By: RADHA Methocarbamol (Methocarbamol 500 Mg Tablet) 500 mg PO NOW ONE Stop: 05/23/22 15:42 Last Admin: 05/23/22 16:32 Dose: 500 mg Documented By: RADHA(2) Metoclopramide HCl (Metoclopramide 10 Mg/2 Ml Inj) 10 mg IV NOW ONE Stop: 05/23/22 14:16 Last Admin: 05/23/22 14:32 Dose: 10 mg Documented By: RADHA Ondansetron HCl (Ondansetron 4 Mg/2 Ml Inj) 4 mg IV NOW ONE Stop: 05/23/22 14:16 Last Admin: 05/23/22 14:31 Dose: 4 mg Documented By: RADHA Sumatriptan Succinate (Sumatriptan 6 Mg/0.5 Ml Vial) 6 mg SUBCUT NOW ONE Stop: 05/23/22 15:42 Last Admin: 05/23/22 16:13 Dose: Not Given Documented By: AT Sumatriptan Succinate (Sumatriptan 6 Mg/0.5 Ml Vial) 6 mg SUBCUT NOW ONE Stop: 05/23/22 16:18 Last Admin: 05/23/22 16:32 Dose: 6 mg Documented By: RADHA(2) Vital Signs Vital signs: Vital Signs - 8 hr 05/23/22 14:15 05/23/22 14:17 05/23/22 14:37 Pulse Rate 63 65 59 L Respiratory Rate 18 Blood Pressure 144/76 H Pulse Oximetry 96 100 99 Oxygen Delivery Method Room Air 05/23/22 15:00 05/23/22 15:00 05/23/22 15:30 Pulse Rate 69 Respiratory Rate Blood Pressure 116/62 121/61 Pulse Oximetry 100 Oxygen Delivery Method 05/23/22 15:30 05/23/22 16:00 05/23/22 16:00 Pulse Rate 66 70 Respiratory Rate Blood Pressure 116/67 Pulse Oximetry 100 100 Oxygen Delivery Method 05/23/22 16:30 05/23/22 16:37 05/23/22 16:37 Pulse Rate 71 64 Respiratory Rate Blood Pressure 131/74 Pulse Oximetry 98 100 Oxygen Delivery Method 05/23/22 17:00 05/23/22 17:36 Pulse Rate 76 80 Respiratory Rate Blood Pressure 105/62 Pulse Oximetry 99 99 Oxygen Delivery Method Room Air MDM - Headache Lab Data Result diagrams: 05/23/22 13:40 05/23/22 13:40 Labs: Lab Results 05/23/22 05/23/22 05/23/22 Range/Units 13:40 13:40 14:20 WBC 7.0 (4.5-11.0) X10^3/uL RBC 4.89 (4.0-5.2) X10^6/uL Hgb 14.5 (12.0-16.0) g/dL Hct 43.0 (36-46) % MCV 87.9 (80-100) fL MCH 29.6 (26-34) PG MCHC 33.7 (30-36) % RDW 13.6 (11.6-14.8) % Plt Count 208 (150-400) X10^3/uL Neut % (Auto) 69.3 (50-75) % Lymph % (Auto) 17.7 L (25-40) % Wilkes % (Auto) 7.8 (3-14) % Eos % (Auto) 4.6 H (2-4) % Baso % (Auto) 0.6 (0-2) % Neut # (Auto) 4900 (3938-2404) /uL Lymph # (Auto) 1200 (7478-1262) /uL Wilkes # (Auto) 600 (0-900) /uL Eos # (Auto) 300 (0-450) /uL Baso # (Auto) 0 (0-100) /uL Sodium 140 (137-145) mmol/L Potassium 3.6 (3.4-5.1) mmol/L Chloride 102 (98-107) mmol/L Carbon Dioxide 27 (22-32) mmol/L BUN 10 (7-17) mg/dL Creatinine 0.76 (0.52-1.04) mg/dL Estimated GFR > 60 (>60) mL/min BUN/Creatinine Ratio 13.2 (6-22) Glucose 91 (70-100) mg/dL Calcium 9.1 (8.4-10.2) mg/dL Total Bilirubin 0.4 (0.2-1.3) mg/dL AST 24 (14-36) IU/L ALT 19 (<35) IU/L Alkaline Phosphatase 62 (38-126) U/L Total Protein 7.9 (6.3-8.2) g/dL Albumin 4.5 (3.5-5.0) g/dL Globulin 3.4 (1.7-4.1) g/dL Albumin/Globulin Ratio 1.3 (1.0-2.8) Urine RBC 0-1/hpf (0-5/HPF) Urine WBC None seen (0-5/HPF) Amorphous Sediment 2+ Urine Bacteria None seen (None) Ur Culture Indicated? Cult not indicated Point of Care Testing Test Results Negative Glucose POC 91 Urine Dip Bedside Urine Glucose Negative Bedside Urine Bilirubin - Negative Bedside Urine Ketone - Negative Urine Specific [place] 1.005 Bedside Urine Occult Blood - Negative Bedside Urine pH 7.0 Bedside Urine Protein - Negative Bedside Urine Urobilinogen - Negative Bedside Urine Nitrite - Negative Bedside Urine Leukocytes +/- 15 Esterase MDM Narrative Medical decision making narrative: This is a pleasant 36-year-old female with a history of complicated migraines, has a prescription of sumatriptan which she has taken this morning 100 mg. She is had intractable migraine symptoms since Saturday05/16/2022 with nausea and vomiting, tunnel vision, sensation of ?rattling brain ?with photosensitivity, and sensitivity to sound. In the emergency department today she was given 1 L of normal saline, dexamethasone, Toradol, sumatriptan subQ 6 mg x 1, Tylenol, Zofran, Reglan, Benadryl, methocarbamol, and has mostly resolved from her migraine. She still has sensation of a rattling brain but does not have tunnel vision, weakness, any focal neuro deficits, and states that she feels much better and is ready to discharge home. Discussed options of follow-up with her, encouraged her to go back to her primary care provider so that she can gain a referral to Neurology. She was given to contact numbers of neurologists in [place]. Patient reports that she feels much better and does not want anymore medication, I encouraged her to follow-up with her primary, stay hydrated, give her a migraine plan for her next 1 and prescribed for her sumatriptan subcutaneous which she can use if this happens again in the future.Meningitis considered, but thought unlikely given lack of Brudzinski's and Kernig's sign, and without altered mental status or fever. Giant cell arteritis considered, but thought unlikely given lack of unilateral findings, pain in oriental orthodox, or unilateral vision changes. HTN Emergency considered, but thought unlikely given normal vitals, considered infectious causes, acute metabolic illness, spontaneous hemorrhage, and vascular occlusion. They are without any focal deficits to suggest this. Other serious diagnoses considered unlikely given lack of red flag findings such as sudden onset, increasing frequency, facial weakness, or other sensation change or weakness. She is not immunocompromised, without active malignancy, anticoagulation, systemic signs of illness (fever, chills, stiff neck, or rash), focal neurologic findings, or recent trauma. This is most likely (migraine, could be opthalmic, tension, hormonal, dehydration, viral illness, or muscle strain. There was no aura, and patient improved over their course in the ER. They were given strict return precautions for any altered mental status, fever, weakness, paresthesia, incon tinence, or pain out of proportion to return to the emergency department for another evaluation. Discharge Plan Departure Patient Disposition: Home Clinical Impression: Intractable migraine Qualifiers: Migraine type: unspecified Status migrainosus presence: with status migrainosus Qualified Code(s): G43.911 - Migraine, unspecified, intractable, with status migrainosus Instructions: Migraine -- Adult, DI for Migraine, DI for Hormonal and Tension Headaches, Sumatriptan, Sumatriptan Injection Activity Restrictions/Additional Instructions: *You have been diagnosed with a complicated migraine. I am sorry for your symptoms, I hope that what we did today was helpful. Please stay hydrated, that can be the biggest factor. For migraine: Tylenol, naproxen or ketorolac, Zofran and or Reglan, 25 mg of Benadryl, and sumatriptan as needed. They say that sumatriptan combined with naproxen, (but I think that ketorolac and naproxen are inner changeable and ketorolac works better) offers the best results. *What to do: *Please continue to take your regular medications as directed. [x] New medication prescriptions sent to your pharmacy: [[facility]] [ ] New medication written as a paper prescription [ ] No new medications given *Please follow up with your primary care provider in 2-3 days, call for an appointment. Let them know you were seen in the Emergency Department and that we asked that you be seen for follow-up. We will electronically transmit a record of today's note if your PCP is in our system *If you do not have a primary care provider please contact [phone] to establish care with one of the [facility] primary care providers. *Return to Emergency Department if you should have any new, worsening, or concerning symptoms, such as [fever greater than 101F, chills, worsening pain, persistent vomiting or other bothersome symptoms]. Prescriptions: New sumatriptan succinate 6 mg/0.5 mL pen injector 6 mg SUBCUT Q1-4H PRN (Reason: migraine headache) Qty: 1 4RF Rx Instructions: 6 mg x 1, if symptoms persist or return, may repeat dose after 1 hour, maximum dose is 12 mg in 24 hours ketorolac 10 mg tablet 10 mg PO Q6H PRN (Reason: pain) Qty: 30 0RF metoclopramide HCl [Reglan] 10 mg tablet 10 mg PO Q6H PRN (Reason: nausea and vomiting) Qty: 14 0RF Rx Instructions: Take 25 mg of Benadryl with this medication No Action albuterol sulfate 90 mcg/actuation aerosol powdr breath activated 2 inhalation INHALATION Q4-6H PRN fluticasone propionate 50 mcg/actuation spray,suspension 2 spray NASAL DAILY fluticasone propion-salmeterol [Advair Diskus] 250-50 mcg/dose blister with device 1 inh inhalation BID Qty: 60 0RF multivitamin [Multiple Vitamins] 1 EACH tablet Qty: 0 (DME) BD Eclipse Luer-Vinicius 3 mL 22 gauge x 1 1/2 syringe See Rx Instructions .Route Qty: 25 1RF Rx Instructions: As directed testosterone cypionate 100 mg/mL oil 25 mg IM Q2W Qty: 1 5RF montelukast [Singulair] 10 mg tablet 10 mg PO DAILY methocarbamol 500 mg tablet 500 mg PO TID PRN (Reason: muscle spasms) Qty: 20 0RF Referrals: Ernestine Roy MD [Non-Staff] - Marco Gupta MD [Non-Staff] - Jenny Miranda DO [Non-Staff] - Sri Cervantes MD [Primary Care Provider] - Visit Report Forms: Patient Portal/API
[2022-05-23] MEDS: ACETAMINOPHEN 325 MG TABLET 975 MG PO (14:30)
[2022-05-23] MEDS: diphenhydrAMINE 50 MG/ML VIAL 25 MG IV (14:31)
[2022-05-23] MEDS: DEXAMETHASONE 10 MG/ML VIAL IV (14:31)
[2022-05-23] MEDS: KETOROLAC 30 MG/ML VIAL 15 MG IV (14:31)
[2022-05-23] MEDS: ONDANSETRON 4 MG/2 ML INJ IV (14:31)
[2022-05-23] MEDS: METOCLOPRAMIDE 10 MG/2 ML INJ IV (14:32)
[2022-05-23] MEDS: SODIUM CHLORIDE 0.9% 1,000 ML 1000 ML IV (14:58)
[2022-05-23 15:23] LABS: Amorphous Sediment Urine 2+; Bacteria Urine None Seen; RBC Urine 0-1/HPF (0-5/HPF); WBC Urine None Seen (0-5/HPF)
[2022-05-23 15:24] LABS: Culture Indicated Urine Cult Not Indicated
--- NOTE | 2022-05-23 16:14 | PC.NURSE ---
Pt reports taking 100mg sumatriptan PO this morning at 0800, [employer] notified.
--- NOTE | 2022-05-23 16:27 | PC.NURSE ---
DHE 45 d/c per provider 1627. Sumatriptan 6mg canceled then reordered by provider, [id number].
[2022-05-23] MEDS: SUMAtriptan 6 MG/0.5 ML VIAL SUBCUT (16:32)
[2022-05-23] MEDS: methocarbamoL 500 MG TABLET PO (16:32)
== END 2022-05-23 17:38 | disposition home or self-care (01) ==
PROVIDERS: Emergency Medicine; Emergency Provider Nurse Practitioner Critical Care Medicine; PCP Family Medicine
DX: G43.911 Migraine, unspecified, intractable, with status migrainosus (principal)
CPT/HCPCS: 36415; 80053; 81003; 81015; 81025; 82962; 85025; 96361; 96372; 96374; 96375; 99284; J1100; J1200; J1885; J2405; J2765; J3030